=== PATIENT | male | born 1950 | race Caucasian/White ===

== ENCOUNTER 2022-02-17 07:41 | Emergency (ER) | payer BC, MEDICARE ==
[2022-02-17 07:56] VITALS: BP 141/92; PULSE 80
--- NOTE | 2022-02-17 08:16 | ED ---
General Adult HPI - General Chief complaint: Upper Respiratory Infection Stated complaint: Covid+/Cough Time Seen by Provider: 02/17/22 07:50 Source: patient Mode of arrival: ambulatory Limitations: no limitations - History of Present Illness Initial comments: Dictation was produced using [employer] dictation software. please excuse any grammatical, word or spelling errors. Chief Complaint: 71-year-old male presents to the emergency department requesting monoclonal antibodies History of Present Illness: 71-year-old male with previous history of tobacco abuse, A. fib bladder cancer. States today that he is here for monoclonal antibodies. Tested positive yesterday after being symptomatic for the last 2-3 days. Patient states he has a deep cough and mild constitutional symptoms. Not receive the vaccination. He has not tested positive for COVID-19 in the past. The ROS documented in this emergency department record has been reviewed and confirmed by me. Those systems with pertinent positive or negative responses have been documented in the HPI. All other systems are other negative and/or noncontributory. PHYSICAL EXAM: General Impression: Alert and oriented x3, not in acute distress HEENT: Normocephalic atraumatic, extra-ocular movements intact, pupils equal and reactive to light bilaterally, mucous membranes moist. Cardiovascular: Heart regular rate and rhythm Chest: Able to complete full sentences, no retractions, no tachypnea Abdomen: abdomen soft, non-tender, non-distended, no organomegaly Musculoskeletal: Pulses present and equal in all extremities, no peripheral edema Motor: no focal deficits noted Neurological: CN II-XII grossly intact, no focal motor or sensory deficits noted Skin: Intact with no visualized rashes Psych: Normal affect and mood ED course: 71-year-old male presents to the emergency department for monoclonal antibodies. Vital signs upon arrival are within acceptable limits. Patient's well-appearing not showing any signs of respiratory distress. Patient is not hypoxic. Patient meets criteria for monoclonal antibody infusion Patient given monoclonal antibodies. Observed in emergency department after infusion. Patient stable for discharge. Advised follow-up with primary care doctor. - Related Data Allergies Allergy/AdvReac Type Severity Reaction Status Date / Time Penicillins Allergy Swelling Verified 02/17/22 07:56 Review of Systems ROS Statement: Those systems with pertinent positive or pertinent negative responses have been documented in the HPI. ROS Other: All systems not noted in ROS Statement are negative. Past Medical History Past Medical History: Atrial Fibrillation Additional Past Medical History / Comment(s): Bladder Cancer - 1999 History of Any Multi-Drug Resistant Organisms: None Reported Additional Past Surgical History / Comment(s): Bladder surgery , bilateral knee replacement Past Psychological History: No Psychological Hx Reported Smoking Status: Never smoker Past Alcohol Use History: Occasional Past Drug Use History: None Reported General Exam Limitations: no limitations Course Vital Signs 02/17/22 02/17/22 07:50 08:14 Temperature 99.2 F Pulse Rate 80 Respiratory 18 16 Rate Blood Pressure 141/92 O2 Sat by Pulse 96 Oximetry Disposition Clinical Impression: Coronavirus infection Disposition: HOME SELF-CARE Condition: Good Instructions (If sedation given, give patient instructions): Coronavirus Disease 2019 (COVID-19) Is patient prescribed a controlled substance at d/c from ED?: No Referrals: Norma Rick DO [Primary Care Provider] - 1-2 days Time of Disposition: 10:00
[2022-02-17] MEDS ORDERED: BEBTELOVIMAB (EUA) 175 MG/2 ML VIAL IV ONE (08:30)
[2022-02-17 10:13] VITALS: RESP 18; TEMP 98
== END 2022-02-17 10:12 | disposition home or self-care (01) ==
LOC: EC 07:41
DX: U07.1 COVID-19 (principal); I48.91 Unspecified atrial fibrillation; Z88.0 Allergy status to penicillin
CPT/HCPCS: 99283; Q0222